=== PATIENT | male | born 1980 | race Caucasian/White ===

== ENCOUNTER 2021-09-28 23:09 | Emergency (ER) | payer OTHER ==
[~2021-09-28] VITALS: Ht 180 cm; Wt 113.0 kg
[2021-09-28] MEDS ORDERED: TETANUS,DIPTH,PERTUSS P/F (BOOSTRIX) 0.5 ML VIAL IM ONE (23:30)
[2021-09-28] MEDS ORDERED: HYDROcodone/APAP 5 MG/325 MG (LORTAB) TAB PO ONE (23:30)
[2021-09-28] MEDS ORDERED: KETOROLAC 60 MG/2 ML VIAL IM ONE (23:30)
[2021-09-28 23:35] VITALS: BP 143/100
--- NOTE | 2021-09-28 23:47 | ED Upper Extremity ---
General Chief Complaint: Upper Extremity Stated Complaint: CRUSHED HAND BY CLAMP Nursing Triage Note: Patient presented to the ER secondary to getting his left hand caught in a clamp. Patient states the machine places rubber gaskets into the pipes. Patient states significant pressure from the clamp. patient is able to move his fingers but limited movement secondary to pain. Pulse present and strong, good cap refill. Source: patient Exam Limitations: no limitations History of Present Illness Date Seen by Provider: Sep 28, 2021 Time Seen by Provider: 23:34 Initial Comments Patient to ER by private conveyance from work with chief complaint he was In a pneumatic clamp for about 2 minutes on his left upper extremity dorsal hand back to about fci along the shaft of the radius and ulna. He is having some decreased sensation in the medial nerve distribution. He has fairly good pinky and ring finger sensation. He cannot feel the tips of any of his fingers. He has not take anything for pain yet. He has not had a tetanus vaccine in the last 5 years. He is having no injury or pain or lack of range of motion to his elbow or shoulder. He can flex his fingers. Allergies and Home Medications Allergies Coded Allergies: ampicillin (Verified Allergy, Unknown, 09/28/21) Patient Home Medication List Home Medication List Reviewed: Yes Hydrocodone/Acetaminophen (Hydrocodone-Acetamin 7.5-325) 1 Each Tablet, 1-2 EACH PO Q6H PRN for PAIN-BREAKTHROUGH Prescribed by: MALDONADO HARRIS on 09/29/21306 Ondansetron (Ondansetron Odt) 4 Mg Tab.rapdis, 4 MG PO Q6H PRN for N AUSEA/VOMITING Prescribed by: MALDONADO HARRIS on 09/29/21 030 Review of Systems Constitutional: No chills, No diaphoresis EENTM: No ear discharge, No ear pain Respiratory: No cough, No short of breath Cardiovascular: No edema, No palpitations Gastrointestinal: No abdominal pain, No nausea, No vomiting Genitourinary: No discharge, No dysuria Musculoskeletal: No back pain, No joint pain Skin: change in color; No pruritus, No rash Psychiatric/Neurological: Denies Anxiety, Denies Depressed All Other Systems Reviewed Negative Unless Noted: Yes Past Wzjenty-Sbmjyd-Shwutb Hx Patient Social History Tobacco Use?: No Use of E-Cig and/or Vaping dev: No Substance use?: No Alcohol Use?: No Past Medical History Surgery/Hospitalization HX: heart valve, diabetic, seizures open heart x 3 Physical Exam Vital Signs Vital Signs - First Documented 09/28/21 23:35 Temp 36.7 Pulse 86 Resp 18 B/P (MAP) 143/100 (114) Pulse Ox 98 O2 Delivery Room Air Capillary Refill : Less Than 3 Seconds Height, Weight, BMI Height: '" Weight: lbs. oz. kg; 34.00 BMI Method: General Appearance: WD/WN, moderate distress HEENT: PERRL/EOMI, pharynx normal Neck: full range of motion, supple, normal inspection Cardiovascular: normal peripheral pulses, regular rate, rhythm Respiratory: no respiratory distress, no accessory muscle use Elbow/Forearm: normal ROM, Left Wrist: Yes normal ROM, Yes abrasions (Linear abrasions over the top of the hand and, wrist and distal forearm) Hand: normal ROM, Left, abrasions (Discoloration), bone tenderness (All metacarpals and carpals) Neurologic/Tendon: normal motor functions, normal tendon functions, no evidence tendon injury, sensory deficit (Median distribution no sensation to touch or pain.), no response to pain (Median distribution), other (Radial and ulnar distribution has sensation to touch) Neurologic/Psychiatric: alert, oriented x 3 Skin: other (Abrasions erythema over the dorsum of the hand and distal wr ist/forearm.) Progress/Results/Core Measures Results/Orders My Orders Medications Given in ED Vital Signs/I&O Blood Pressure Mean: 114 Progress Progress Note : Time: 23:47 Progress Note Toradol IM, [place] and Tdap. Plain films of the hand and forearm. Crush injury with some neural deficits. Plan to refer to hand surgeon. Diagnostic Imaging Diagonstic Imaging: Xray Plain Films/CT/US/NM/MRI: hand (l) Comments No acute osseous abnormality. [facility] [place], [place] NAME: ZELDA WHITNEY [facility] REC#: [id number] PT STATUS: DEP ER : 1980 PHYSICIAN: MALDONADO HARRIS MD ADMIT DATE: 09/28/21/ER Signed Date of Exam:09/29/21 HAND, LEFT, 3 VIEWS INDICATION: Left hand pain. AP, oblique and lateral views of the left hand are obtained. There is no previous study available at this time for comparison. FINDINGS: No acute fracture or malalignment is identified. There is no lytic or sclerotic focus. There is punctate radiopaque density in the palmar medial aspect of the base of index finger. No other radiopaque foreign body is identified. IMPRESSION: No acute osseous abnormality is identified. Tiny radiopaque density is seen at the base of index finger and clinical correlation would be useful. Dictated by: Dictated on workstation # [id number] Dict: 09/29/21708 Trans: 09/29/21915 [id number] Interpreted by: FERNANDA ESPAÑA MD Electronically signed by: FERNANDA ESPAÑA MD 09/29/21915 Reviewed: Reviewed by Me Diagonstic Imaging: Xray Plain Films/CT/US/NM/MRI: forearm (l) Comments No acute osseous abnormality. [facility] [place] [place] NAME: ZELDA WHITNEY [facility] REC#: [id number] PT STATUS: DEP ER : 1980 PHYSICIAN: MALDONADO HARRIS MD ADMIT DATE: 09/28/21/ER Signed Date of Exam:09/29/21 FOREARM, LEFT, 2 VIEWS INDICATION: Left arm pain. AP and lateral views of left forearm are obtained. FINDINGS: No acute fracture or dislocation is identified. No abnormal lytic or sclerotic focus is seen, and there is no radiopaque foreign body. IMPRESSION: No acute abnormality. Dictated by: Dictated on workstation # [id number] Dict: 09/29/21710 Trans: 09/29/21914 [id number] Interpreted by: FERNANDA ESPAÑA MD Electronically signed by: FERNANDA ESPAÑA MD 09/29/21914 Reviewed: Reviewed by Me Departure Impression Primary Impression: Crushing injury of left hand excluding fingers Disposition: 01 HOME, SELF-CARE Condition: Stable Departure-Patient Inst. Decision time for Depature: 03:02 Referrals: [facility] [place] Primary Care Physician MARK AMOS DO NO,LOCAL PHYSICIAN (PCP) Patient Instructions: Crush Injury, Hand Pain (DC) Add. Discharge Instructions: You do not appear to have a fracture of the bones your hand but you certainly have a significant damage to the soft tissue of your hand and wrist. This will swell over the first 2 to 3 days. Keep the arm elevated above the level of your heart. Ice 20 minutes on every 2 hours while awake or more to keep swelling down. Compress it with an Jamie bandage or similar dressing. If you have decreased sensation in the fingertips, pain out of proportion or other worrisome discoloration of the fingertips then you should loosen the dressing, rewrap it wider and elevate your arm. If this does not improve in the next 20 to 40 minutes then you need to return to the nearest ER. Call Dr. AMOS, hand surgeon to help manage your injury by setting up an appointment. Follow-up with primary care team for continued management of your pain. Tylenol 650 mg every 6 hours as necessary for pain. Ibuprofen 800 mg every 8 hours as necessary for pain. Hydrocodone 1 to 2 tablets every 6 hours as necessary for severe breakthrough pain. Zofran 1 tablet every 6 hours under the tongue as necessary for nausea and/or vomiting. All discharge instructions reviewed with patient and/or family. Voiced understanding. Scripts Ondansetron (Ondansetron Odt) 4 Mg Tab.rapdis 4 MG PO Q6H PRN for NAUSEA/VOMITING, #8 TAB 0 Refills Prov: MALDONADO HARRIS 09/29/21 Hydrocodone/Acetaminophen (Hydrocodone-Acetamin 7.5-325) 1 Each Tablet 1-2 EACH PO Q6H PRN for PAIN-BREAKTHROUGH, #20 TAB 0 Refills Prov: MALDONADO HARRIS 09/29/21 Work/School Note: Work Release Form Date Seen in the Emergency Department: Sep 29, 2021 Return to Work: Oct 06, 2021 Restrictions: Need Release from Doctor Other Restrictions Listed Below: No use of right arm until released by Copy Copies To 1: [facility] [place]; MARK AMOS TITUS J Sep 28, 2021 23:47
[2021-09-29] MEDS ORDERED: HYDROcodone/APAP 5 MG/325 MG (LORTAB) TAB PO ONE (02:15)
[2021-09-29] MEDS ORDERED: ONDA4TAB11 PO (03:06)
[2021-09-29] MEDS ORDERED: HYDR-3817 PO (03:06)
--- NOTE | 2021-09-29 07:14 | Diagnostic Imaging Report ---
INDICATION: Left arm pain. AP and lateral views of left forearm are obtained. FINDINGS: No acute fracture or dislocation is identified. No abnormal lytic or sclerotic focus is seen, and there is no radiopaque foreign body. IMPRESSION: No acute abnormality. Dictated by: Dictated on workstation # [id number]
--- NOTE | 2021-09-29 07:15 | Diagnostic Imaging Report ---
INDICATION: Left hand pain. AP, oblique and lateral views of the left hand are obtained. There is no previous study available at this time for comparison. FINDINGS: No acute fracture or malalignment is identified. There is no lytic or sclerotic focus. There is punctate radiopaque density in the palmar medial aspect of the base of index finger. No other radiopaque foreign body is identified. IMPRESSION: No acute osseous abnormality is identified. Tiny radiopaque density is seen at the base of index finger and clinical correlation would be useful. Dictated by: Dictated on workstation # [id number]
== END 2021-09-29 03:18 | disposition home or self-care (01) ==
LOC: EDUNIT# 23:09 → ER 23:13
DX: S67.22XA Crushing injury of left hand, initial encounter (principal); E11.9 Type 2 diabetes mellitus without complications; Z23 Encounter for immunization; X58.XXXA Exposure to other specified factors, initial encounter
CPT/HCPCS: 73090; 73130; 90471; 90715; 96372; 99281

== ENCOUNTER → 2021-10-20 | Outpatient (CLI) | payer OTHER ==
[~2021-10-20] MED LIST: HYDR-3817 PO; ONDA4TAB11 PO
--- NOTE | 2021-10-20 15:19 | Diagnostic Imaging Report ---
PROCEDURE: CT left upper extremity without contrast. TECHNIQUE: Multiple contiguous axial images were obtained through the left upper extremity without the use of intravenous contrast. Auto Exposure Controls were utilized during the CT exam to meet ALARA standards for radiation dose reduction. INDICATION: Crush injury to hand. COMPARISON: Hand radiographs from 09/29/2021. FINDINGS: Bones: Acute nondisplaced fracture in the hook of hamate has transverse orientation and less than 2 mm of fracture diastasis. The tubercle of the triquetrum remains intact. Tiny porfirio of bone is present along the volar surface of the capitate which could represent tiny cortical fracture. There is no acute or healing fracture within the phalanges or metacarpals. Soft tissues: Flexor and extensor tendons are normally positioned within the hand and wrist. A 3 x 3 mm metallic foreign body is present at the second intermetacarpal web space in the subcutaneous fat. IMPRESSION: 1. Acute nondisplaced fracture through the hook of hamate. 2. Tiny porfirio of bone along the volar surface of the adjacent capitate is likely due to a small fracture. 3. A 3 mm round radiopaque foreign body is present in the subcutaneous fat of the second intermetatarsal web space. Dictated by: Dictated on workstation # [id number]
== END ==
LOC: RAD FS 10:53
PROVIDERS: ATTEND Nurse Practitioner Family
DX: S62.92XA Unspecified fracture of left hand, initial encounter for closed fracture (principal); M79.5 Residual foreign body in soft tissue; X58.XXXA Exposure to other specified factors, initial encounter
CPT/HCPCS: 73200